=== PATIENT | female | born 1935 | race Caucasian/White ===

== ENCOUNTER → 2017-05-06 | Outpatient (CLI) | payer OTHER | LOC: FIMAGING 14:01 | PROVIDERS: ATTEND Internal Medicine | DX: I67.2 Cerebral atherosclerosis (principal); S09.90XS Unspecified injury of head, sequela ==

== ENCOUNTER → 2017-06-05 | Outpatient (CLI) | payer OTHER ==
[~2017-06-05] MED LIST: IOPAMIDOL (ISOVUE-300) 100 ML BTL ONE
== END ==
LOC: FIMAGING 13:48
PROVIDERS: ATTEND Family Medicine
DX: K57.32 Diverticulitis of large intestine without perforation or abscess without bleeding (principal); D25.9 Leiomyoma of uterus, unspecified; K76.89 Other specified diseases of liver; K44.9 Diaphragmatic hernia without obstruction or gangrene
CPT/HCPCS: 74177; Q9967

== ENCOUNTER → 2017-06-09 | Outpatient (CLI) | payer OTHER | LOC: FIMAGING 15:47 | PROVIDERS: ATTEND Internal Medicine | DX: Z12.31 Encounter for screening mammogram for malignant neoplasm of breast (principal); Z85.3 Personal history of malignant neoplasm of breast | CPT/HCPCS: G0202 ==

== ENCOUNTER 2017-12-05 18:23 | Inpatient (IN) | payer OTHER ==
--- NOTE | 2017-12-05 18:41 | CPEKG ---
Heart Rate: 75 RR Interval: 800 P-R Interval: 144 QRSD Interval: 88 QT Interval: 400 QTC Interval: 447 P [place]: 30 QRS [place]: -22 T Wave [place]: 48 EKG Severity - OTHERWISE NORMAL ECG - EKG Impression: SINUS RHYTHM EKG Impression: BORDERLINE LEFT AXIS DEVIATION Electronically Signed By: Gio Shafer 05-Dec-2017 18:54:07
[2017-12-05] MEDS ORDERED: ASPIRIN 81 MG CHEWABLE TAB PO ONE (18:46)
[2017-12-05] MEDS ORDERED: NITROGLYCERIN 0.4 MG BTL SL PRN ×2 (18:46→22:49)
--- NOTE | 2017-12-05 18:49 | EDPHY ---
H & P Time Seen by Provider: 12/05/17 18:25 HPI/ROS: CHIEF COMPLAINT: Chest discomfort HISTORY OF PRESENT ILLNESS: Patient is a family history of coronary disease has been feeling more weak over the last month. Her daughter went to walk with her yesterday and she had stopped rest on flat ground which is unusual for her. She has a history of always being a hiker and having climbed multiple 14 14[place] in her life. Patient today went to her primary care doctor's office at 5:00 p.m. And then around quarter to 6 or 6:00 p.m. started having left-sided chest tightness or pressure which does not radiate, not associated with coughing or shortness of breath or nausea or diaphoresis. Still present very mild. Not associated with leg swelling or leg pain. REVIEW OF SYSTEMS: Eye: no change in vision ENT: no sore throat Cardiac: HPI no palpitations Pulmonary: HPI no cough or fever Abdomen: no vomiting, diarrhea, abdominal pain Musculoskeletal: no back pain or leg swelling Skin: no rash Neuro: no headache. She does describe feeling mentally a little bit off ever since she had antibiotics for diverticulitis last July. Constitutional: no fever : no urinary symptoms A comprehensive 10 point review of systems is otherwise negative aside from elements mentioned in the history of present illness. PAST MEDICAL HISTORY: Includes remote history of breast cancer, rotator cuff surgery, right shoulder replacement Family history: Father had myocardial infarction in his 50s, twin brother had bypass surgery 3 years ago Social history: Nonsmoker, here with her daughter. General Appearance: Alert and conversant, cooperative. Eyes: No scleral icterus. ENT, Mouth: Normal mucous membranes. Respiratory: Normal respiratory effort, breath sounds equal, lungs are clear to auscultation. Cardiovascular: Regular rate and rhythm. Gastrointestinal: Abdomen is soft and non tender. Neurological: Alert, face symmetric, normal motor and sensory in extremities. Skin: Warm and dry, no rashes. Musculoskeletal: No peripheral edema. No calf tenderness. Psychiatric: Not agitated. Emergency Department course/MDM: At least moderate suspicion for acute coronary syndrome given decreased exercise tolerance and family history. EKG does not show ST elevation. Oral aspirin, labs to include D-dimer because of history of breast cancer, troponin, chest x-ray. 2011: Asymptomatic after 1 nitroglycerin, labs and plan for admission for risk stratification discussed with patient and her children. Smoking Status: Never smoked Constitutional: Initial Vital Signs Temperature (C) 36.6 C 12/05/17 18:24 Heart Rate 88 12/05/17 18:24 Respiratory Rate 17 12/05/17 18:24 Blood Pressure 156/90 H 12/05/17 18:24 O2 Sat (%) 98 12/05/17 18:24 O2 Delivery Mode Nasal Cannula Allergies/Adverse Reactions: acetaminophen Allergy (Verified 12/31/14 12:43) leg cramps Sulfa (Sulfonamide Antibiotics) [Sulfa(Sulfonamide Antibiotics)] Allergy ( Verified 12/31/14 12:43) ibuprofen [From Advil] Adverse Reaction (Verified 12/31/14 12:43) Home Medications: Medication Instructions Recorded Estradiol/Norethindrone Acet 1 each PO DAILY 11/24/14 [Activella 0.5-0.1 mg Tablet] Levothyroxine [Synthroid] 88 mcg PO SUMOWEFR@11/24/14 Aspirin [Aspirin 81mg (OTC)] 81 mg PO DAILY 12/26/14 Levothyroxine [Synthroid] 75 mcg PO TUTHSA@12/26/14 oxyCODONE IR [Oxycodone Ir (*)] 5 - 15 mg PO Q3 PRN #0 tab 12/28/14 oxyCODONE IR [Oxycodone Ir (*)] 5 - 10 mg PO Q6 PRN #29 tab 12/31/14 Medical Decision Making - Diagnostics EKG Interpretation: 12-lead EKG interpreted by me; official reading is in trace master. My interpretation is sinus rhythm rate 75 with borderline left axis. Imaging Results: Imaging Impressions Chest X-Ray 12/05/17 18:47 Impression: No definite pneumonia. Imaging: I viewed and interpreted images myself Differential Diagnosis: Differential diagnosis considered for chest pain including but not limited to myocardial ischemia, aortic dissection, pericarditis, pulmonary embolus, chest wall pain, pleural inflammation and pulmonary infectious causes. Consult[facility] [facility] Laboratory Results: Laboratory Results 12/05/17 18:52 12/05/17 18:52 12/05/17 12/05/17 12/05/17 18:52 18:52 18:52 WBC 8.84 10^3/uL 10^3/uL (3.80-9.50) RBC 4.63 10^6/uL 10^6/uL (4.18-5.33) Hgb 15.0 g/dL g/dL (12.6-16.3) Hct 41.8 % % (38.0-47.0) MCV 90.3 fL fL (81.5-99.8) MCH 32.4 pg pg (27.9-34.1) MCHC 35.9 g/dL g/dL (32.4-36.7) RDW 13.7 % % (11.5-15.2) Plt Count 206 10^3/uL 10^3/uL (150-400) MPV 9.5 fL fL (8.7-11.7) Neut % (Auto) 48.9 % % (39.3-74.2) Lymph % (Auto) 38.1 % % (15.0-45.0) [place] % (Auto) 9.2 % % (4.5-13.0) Eos % (Auto) 2.3 % % (0.6-7.6) Baso % (Auto) 1.2 % % (0.3-1.7) Nucleat RBC Rel Count 0.0 % % (0.0-0.2) Absolute Neuts (auto) 4.32 10^3/uL 10^3/uL (1.70-6.50) Absolute Lymphs (auto) 3.37 10^3/uL H 10^3/uL (1.00-3.00) Absolute Monos (auto) 0.81 10^3/uL H 10^3/uL (0.30-0.80) Absolute Eos (auto) 0.20 10^3/uL 10^3/uL (0.03-0.40) Absolute Basos (auto) 0.11 10^3/uL H 10^3/uL (0.02-0.10) Absolute Nucleated RBC 0.00 10^3/uL 10^3/uL (0-0.01) Immature Gran % 0.3 % % (0.0-1.1) Immature Gran # 0.03 10^3/uL 10^3/uL (0.00-0.10) D-Dimer 0.37 ug/mLFEU ug/mLFEU (0.00-0.50) Sodium 139 mEq/L mEq/L (135-145) Potassium 4.2 mEq/L mEq/L (3.5-5.2) Chloride 104 mEq/L mEq/L (97-110) Carbon Dioxide 24 mEq/l mEq/l (22-31) Anion Gap 11 mEq/L mEq/L (8-16) BUN 18 mg/dL mg/dL (7-23) Creatinine 0.8 mg/dL mg/dL (0.6-1.0) Estimated GFR > 60 Glucose 77 mg/dL mg/dL (70-100) Calcium 8.7 mg/dL mg/dL (8.5-10.4) Troponin I < 0.012 ng/mL ng/mL (0.000-0.034) Medications Given: Nitroglycerin (Nitrostat) 0.4 mg SL Q5M PRN PRN Reason: Chest Pain Last Admin: 12/05/17 19:35 Dose: 0.4 mg Discontinued Medications Aspirin (Aspirin) 324 mg PO EDNOW ONE Stop: 12/05/17 18:47 Last Admin: 12/05/17 19:27 Dose: 324 mg Departure - Departure Disposition: [facility] Inpatient Acute Clinical Impression: Chest pain Condition: Good Referrals: Sri Carroll MD [Primary Care Provider] - As per Instructions
[2017-12-05 19:02] LABS: PLATELET COUNT 206 10^3/uL (150-400)
[2017-12-05] MEDS ORDERED: HYDROCODONE/APAP 5/325 TAB PO PRN (22:43)
[2017-12-05] MEDS ORDERED: ACETAMINOPHEN 325 MG TAB PO PRN (22:43)
[2017-12-05] MEDS ORDERED: ONDANSETRON 4 MG/2 ML VIAL IVP PRN (22:43)
--- NOTE | 2017-12-06 01:02 | PDGENHP ---
History and Physical - Chief Complaint chest pain - History of Present Illness Source-patient provides history appears reliable. EMR reviewed and case discussed with ED provider HPI - espinoza 82-year-old female with past medical history significant for CAD , remote breast cancer, hypothyroidism who presents emergency department today with complaints of new onset left-sided chest heaviness. At approximately 5-6 p.m. Patient was leaving her PCPs office when she developed the left-sided chest pressure. She had her daughter drive her to the emergency department by the time she arrived her chest pain had resolved. She denies any associated shortness of breath, no diaphoresis. Patient without any previous history of angina. She has had a remote stress test that was reported to be negative but this has been several years ago. Patient has strong family history for coronary artery disease including father and brother. Patient is a fairly active person. She has reports having climbed all 14 nurse and continues to hike locally. More recently patient reports that over the last several months she has been having increasing fatigue with exertion. She denies any associated shortness of breath or chest pain. She has not had any syncope or presyncopal episodes. Patient states that she had follow up with her PCP recently for her fatigue and laboratory studies were completed. Review of EMR shows that patient did have a TSH in October that was within normal limits as well as CBC and BMP. Patient denies any significant lower extremity edema. She has no orthopnea. Denies PND. History Information - Allergies/Home Medication List Allergies/Adverse Reactions: acetaminophen Allergy (Verified 12/31/14 12:43) leg cramps ibuprofen [From Advil] Allergy (Verified 12/05/17 22:56) Sulfa (Sulfonamide Antibiotics) [Sulfa(Sulfonamide Antibiotics)] Allergy ( Verified 12/31/14 12:43) Home Medications: Estradiol/Norethindrone Acet [Activella 0.5-0.1 mg Tablet] 1 each PO DAILY 11/24 [Last Taken 12/05/17] Levothyroxine [Synthroid] 88 mcg PO SUMOWEFR@11/24/14 [Last Taken 12/05/17] Aspirin [Aspirin 81mg (OTC)] 81 mg PO HS 12/26/14 [Last Taken 12/05/17] Levothyroxine [Synthroid] 75 mcg PO TUTHSA@12/26/14 [Last Taken 12/04/17] Ascorbic Acid [Vitamin C] 1,000 mg PO HS 12/05/17 [Last Taken 12/04/17] I have personally reviewed and updated: family history, medical history, social history, surgical history - Past Medical History Additional medical history: History concussion 2017, CAD, diverticulitis, breast cancer, hypothyroidism - Surgical History Additional surgical history: Right lumpectomy, rotator cuff repair, right total shoulder arthroplasty - Family History Additional family history: Father-CAD/NE in his 50s. Brother twin-CABG in his 70s - Social History Smoking Status: Never smoked Alcohol Use: None Drug Use: None Additional social history: Good support from daughter who lives in town. Core- full Review of Systems Review of Systems: ROS: 10pt was reviewed & negative except for what was stated in HPI & below Constitutional: Reports: malaise. Denies: chills, fever, weakness EENMT: Reports: no symptoms Cardiac: Reports: chest pain. Denies: edema, lightheadedness, palpitations Respiratory: Denies: cough, shortness of breath, wheezing Gastrointestinal: Denies: vomitting, nausea Genitourinary: Denies: dysuria, hematuria Muscolosketal: Denies: joint swelling, muscle stiffness Skin: Reports: no symptoms Neurological: Reports: no symptoms. Denies: headache, numbness, tingling, weakness Hematologic/Lymphatic: Reports: no symptoms Physical Exam Physical Exam: Temp Pulse Resp BP Pulse Ox 36.6 C 68 18 141/70 H 95 12/05/17 23:39 12/05/17 23:39 12/05/17 23:39 12/05/17 23:39 12/05/17 23:39 Constitutional: no apparent distress, No uncomfortable Eyes: PERRL, anicteric sclera, EOMI Ears, Nose, Mouth, Throat: moist mucous membranes, other (No nasal discharge), No poor dentition Cardiovascular: regular rate and rhythym, no murmur, rub, or gallop, No systolic murmur, No edema Peripheral Pulses: 2+: dorsalis-pedis (R), dorsalis-pedis (L) Respiratory: no respiratory distress, clear to auscultation, No expiratory wheeze Gastrointestinal: normoactive bowel sounds, no palpable masses, No distension Genitourinary: no bladder tenderness, No lamb in urethra Skin: warm, normal color, no rashes or abrasions, No mottled Musculoskeletal: full muscle strength (Patient able to sit up independently), other, No joint tenderness, No generalized weakness Neurologic: AAOx3, sensation intact bilaterally, CN II-XII Intact, No facial droop Psychiatric: interacting appropriately, not anxious, not encephalopathic, thought process linear Lab Data & Imaging Review 12/05/17 18:52 12/06/17 03:25 WBC 8.84 10^3/uL (3.80-9.50) 12/05/17 18:52 RBC 4.63 10^6/uL (4.18-5.33) 12/05/17 18:52 Hgb 15.0 g/dL (12.6-16.3) 12/05/17 18:52 Hct 41.8 % (38.0-47.0) 12/05/17 18:52 MCV 90.3 fL (81.5-99.8) 12/05/17 18:52 MCH 32.4 pg (27.9-34.1) 12/05/17 18:52 MCHC 35.9 g/dL (32.4-36.7) 12/05/17 18:52 RDW 13.7 % (11.5-15.2) 12/05/17 18:52 Plt Count 206 10^3/uL (150-400) 12/05/17 18:52 MPV 9.5 fL (8.7-11.7) 12/05/17 18:52 Neut % (Auto) 48.9 % (39.3-74.2) 12/05/17 18:52 Lymph % (Auto) 38.1 % (15.0-45.0) 12/05/17 18:52 [place] % (Auto) 9.2 % (4.5-13.0) 12/05/17 18:52 Eos % (Auto) 2.3 % (0.6-7.6) 12/05/17 18:52 Baso % (Auto) 1.2 % (0.3-1.7) 12/05/17 18:52 Nucleat RBC Rel Count 0.0 % (0.0-0.2) 12/05/17 18:52 Absolute Neuts (auto) 4.32 10^3/uL (1.70-6.50) 12/05/17 18:52 Absolute Lymphs (auto) 3.37 10^3/uL (1.00-3.00) H 12/05/17 18:52 Absolute Monos (auto) 0.81 10^3/uL (0.30-0.80) H 12/05/17 18:52 Absolute Eos (auto) 0.20 10^3/uL (0.03-0.40) 12/05/17 18:52 Absolute Basos (auto) 0.11 10^3/uL (0.02-0.10) H 12/05/17 18:52 Absolute Nucleated RBC 0.00 10^3/uL (0-0.01) 12/05/17 18:52 Immature Gran % 0.3 % (0.0-1.1) 12/05/17 18:52 Immature Gran # 0.03 10^3/uL (0.00-0.10) 12/05/17 18:52 D-Dimer 0.37 ug/mLFEU (0.00-0.50) 12/05/17 18:52 Sodium 139 mEq/L (135-145) 12/05/17 18:52 Potassium 4.2 mEq/L (3.5-5.2) 12/05/17 18:52 Chloride 104 mEq/L (97-110) 12/05/17 18:52 Carbon Dioxide 24 mEq/l (22-31) 12/05/17 18:52 Anion Gap 11 mEq/L (8-16) 12/05/17 18:52 BUN 18 mg/dL (7-23) 12/05/17 18:52 Creatinine 0.8 mg/dL (0.6-1.0) 12/05/17 18:52 Estimated GFR > 60 12/05/17 18:52 Glucose 77 mg/dL (70-100) 12/05/17 18:52 Calcium 8.7 mg/dL (8.5-10.4) 12/05/17 18:52 Troponin I < 0.012 ng/mL (0.000-0.034) 12/05/17 18:52 Imaging Review: Chest, Two Views at 1834 hours, December 05, 2017 History: Chest pain, previous right breast cancer. Comparison: April 2012. Findings: Cardiac silhouette is within normal range. No definite pulmonary nodules. Surgical clips in the right breast. 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 No definite pneumonia. No congestive heart failure, pleural effusion, or pneumothorax. Right shoulder arthroplasty. Moderate osteoarthritis of left glenohumeral joint. Impression: No definite pneumonia. Dictated By: Ariel Guthrie * Visualized and Interpreted EKG results: Yes EKG additional interpertation: NSR 7 knees. LAD. QTC 447. No acute ST changes Assessment & Plan Assessment: Chest pain (Acute) - patient's HEART score is 4 with family history age hand moderate suspicion. Patient's chest pain is resolved shortly after onset. Initial EKG and troponin are nondiagnostic. We will plan to trend cardiac enzymes and consider stress in the a.m.. Patient has been reporting increasing fatigue with exertion but no dyspnea or anginal type symptoms. Fatigue - echocardiogram ordered for a.m.. Reviewed outpatient labs from PCP showing normal TSH and laboratory studies. Chronic medical issues hypothyroidism - continue l-thyroxine replacement. FEN - NPO after midnight. electrolyte replacement prn. SLIV. PPX - SCDs. lovenox if normal stress and patient requires additional hospital stay. COR - FULL. Dispo - admit to observation at this time pending further cardiac evaluation.
[2017-12-06] MEDS ORDERED: diphenhydrAMINE 25 MG CAP PO PRN (02:22)
--- NOTE | 2017-12-06 10:43 | ECHO ---
[email or web address] [address] Main: [phone] Fax: Transthoracic Echocardiogram Name: EDU MCKNIGHT MR#: [id number] Study Date: 12/06/2017 Study Time: 09:37 AM Date of : 1935 Age: 82 year(s) Height: 152.4 cm (60 in.) Weight: 60.78 kg (134 lb.) BSA: 1.57 m2 Gender: Female Examination: Echo Indication: Fatigue Image Quality: Contrast: Requested by: Claudia Payne BP: 166 mmHg/78 mmHg Heart Rate: Rhythm: Normal sinus rhythm Indication: Fatigue Procedure Staff Heating Repair Technician: Darryl Maya RDCS Reading Physician: Michael Marshall MD Requesting Provider: Conclusions: Normal global systolic LV function. EF is 65 %. Mild mitral valve leaflet calcification is present. Measurements: Chambers Valvular Assessment AV/MV Valvular Assessment TV/PV Normal Normal Normal Name Value Range Name Value Range Name Value Range Ao Tiffany (MM): 2.2 cm (2.2 cm-3.7 AV Vmax: 1.25 m/s (1 m/s-1.7 PV Vmax: 1.15 m/s (0.6 m/s-0.9 cm) m/s) m/s) IVSd (2D): 0.9 cm (0.6 cm-1.1 AV maxP mmHg ( - ) PV PGmax: 5 mmHg ( - ) cm) LVOT Vmax: 0.82 m/s (0.7 m/s-1.1 LVDd (2D): 3.7 cm (3.9 cm-5.3 m/s) cm) AR (PHT): 462 ms ( - ) LVDs (2D): 2.4 cm (2.1 cm-4 MV E Vmax: 0.67 m/s ( - ) cm) MV A Vmax: 1.16 m/s ( - ) LVPWd (2D): 0.9 cm ( - ) MV E/A: 0.58 ( - ) LVEF (2D): 65 (>=54 %) Continued Measurements: Chambers Valvular Assessment AV/MV Name Value Name Value LADs Lon.4 cm MV E/E' Septal: 11.00 LA Area: 11.2 cm2 MV E/E' Lateral: 10.20 LA Volume: 25 ml AR Vmax: 2.89 cm/s LA Volume Index: 15.9 ml/m2 Patient: EDU MCKNIGHT Study Date: 12/06/2017 Page 1 of 2 09:37 AM Findings: Left Ventricle: No LV hypertrophy. Normal global systolic LV function. EF is 65 %. No regional wall motion abnormality. Diastolic LV function normal for age. Right Ventricle: Normal size right ventricle. Normal RV function. Left Atrium: The left atrium is normal in size. Right Atrium: The right atrium is normal in size. Mitral Valve: Mild mitral valve leaflet calcification is present. Trivial mitral valve regurgitation. Aortic Valve: Mild aortic cusp calcification is noted. Trivial aortic valve regurgitation. No aortic valve stenosis is present. Tricuspid Valve: The tricuspid valve appears normal. Trivial tricuspid valve regurgitation. Pulmonic Valve: The pulmonic valve is normal in appearance and function. Aorta: The aorta is normal. Pericardium: No pericardial effusion. (No Signature Object) Patient: EDU MCKNIGHT Study Date: 12/06/2017 Page 2 of 2 09:37 AM [id number]
[2017-12-06] MEDS ORDERED: REGADENOSON 0.4 MG/5 ML SYR IVP ONE (11:11)
--- NOTE | 2017-12-06 12:16 | CPR ---
[f rep st] NONINVASIVE CARDIAC PROCEDURE REPORT DATE OF PROCEDURE: 12/06/2017 STUDY: Treadmill Nuclear Stress Test. REASON FOR TEST: 1. Chest heaviness. 2. Increased fatigue. 3. Twin brother with history of coronary artery disease and SD causing . RESTING EKG: Shows a sinus rhythm with septal Q-waves. She is asymptomatic at time of test. Restin g blood pressure 148/70, resting heart rate 75, oxygen saturation 94% on room air. EXERCISE PORTION: According to the Angelo protocol, she was exercised for a total of 3 minutes, reach ing maximal heart rate of 126. MET level 4.6. Max some heart rate 126. Maximal blood pressure 176/ 80. There were no EKG changes. She had no chest pain or complaints of shortness of breath with test ing. There were occasional PVCs noted with exercise. RECOVERY: She did spontaneously recover. There was no increase in arrhythmias. Final EKG showed no PVCs. EKG otherwise remain stable. Recovery blood pressure 150/80. Recovery heart rate 79. At this time, she currently is stable for nuclear imaging. /[id number]/MODL
--- NOTE | 2017-12-06 13:29 | ASMTCMCOM ---
CM Note CM Note Notes: Chart reviewed. Patient is active 82 yeear old admiited as OBS via ED for c/o chest heavyness. R/O ACS. Refused PT as she is up independent. Likey home independent no needs identified at this time. CM available should needs arise. Date Signed: 12/06/2017 01:28 PM Electronically Signed By:Rosanna Gallardo RN
--- NOTE | 2017-12-06 16:04 | HOSPPROG ---
Hospitalist Progress Note Assessment/Plan: * chest pain/ progressive dyspnea with exertion * stress images slightly abnormal * will need rest images * hypothyroidism Subjective: no further cp Objective: Vital Signs Temp Pulse Resp BP Pulse Ox 36.9 C 80 12 146/84 H 95 12/06/17 11:42 12/06/17 11:42 12/06/17 11:42 12/06/17 11:42 12/06/17 11:42 Laboratory Results 12/06/17 03:25 12/05/17 12/06/17 12/07/17 05:59 05:59 06:59 Intake Total 100 Balance 100 - Physical Exam Constitutional: no apparent distress, appears nourished, not in pain Eyes: anicteric sclera, EOMI Ears, Nose, Mouth, Throat: moist mucous membranes Cardiovascular: regular rate and rhythym, no murmur, rub, or gallop Respiratory: no respiratory distress, no rales or rhonchi Gastrointestinal: normoactive bowel sounds Skin: warm Neurologic: AAOx3 Psychiatric: interacting appropriately, not anxious, not encephalopathic, thought process linear ICD10 Worksheet Patient Problems: Problems Problem Status Onset Chest pain Acute 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
--- NOTE | 2017-12-06 16:40 | PDMN ---
Medical Necessity Medical necessity: C/M review: est. > 2 MN LOS for eval and TX of acute chest pain, progressive dysopnea with exertion, 12/06/2017 myocardial perfusion scan - stress images slightly abnormal requiring planned 12/07/2017 myocardial perfusion scan rest images, ongoing cardiac monitoring,. comorbid hypothyroidism per 12/06/2017 Hospitalist progress note.
[2017-12-06] MEDS: ASPIRIN 81 MG CHEWABLE TAB PO SCH (20:46)
[2017-12-07] MEDS: LEVOTHYROXINE 88 MCG TAB PO SCH (05:54)
[2017-12-07] MEDS: NORETHINDRONE PO SCH (08:20)
[2017-12-07] MEDS: ESTRADIOL PO SCH (08:20)
--- NOTE | 2017-12-07 14:39 | HOSPPROG ---
Hospitalist Progress Note Assessment/Plan: * chest pain/ progressive dyspnea with exertion * stress test with reversible inf-lat wall ischemia * short run of NSVT * cards consulted - probable cath tomorrow * NSVT/couple runs of SVT or afib * will defer to cards * hypothyroidism Subjective: no pain Objective: Vital Signs Temp Pulse Resp BP Pulse Ox 36.8 C 71 16 138/64 H 94 12/07/17 14:01 12/07/17 14:01 12/07/17 14:01 12/07/17 14:01 12/07/17 14:01 12/06/17 12/07/17 12/08/17 04:59 05:59 05:59 Intake Total Output Total Balance tele reviewed - short run of svt vs afib and short run of NSVT discussed with cards - Physical Exam Constitutional: no apparent distress, appears nourished, not in pain Eyes: anicteric sclera, EOMI Ears, Nose, Mouth, Throat: moist mucous membranes, hearing normal Cardiovascular: regular rate and rhythym Respiratory: no respiratory distress Skin: warm Neurologic: AAOx3 Psychiatric: interacting appropriately, not anxious, not encephalopathic, thought process linear ICD10 Worksheet Patient Problems: Problems Problem Status Onset Chest pain Acute 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
--- NOTE | 2017-12-07 17:50 | PDCARCONS ---
Cardiology Consult Reason for Consult: Chest pressure with abnormal MPI Chief Complaint: Chest pressure Requesting Physician: Hospitalist team History of Present Illness: Patient is an 82 y/o female with history of hypothyroidism and breast cancer, who presented to [facility] after appreciating chest pressure. No colleen "pains" have been noted, but the patient has a keen awareness of both chest pressure as well as acute functional decline. She has long standing history of being very active (she has climbed all the [employer] of [place]). Discomfort to left chest is a new symptom for the patient. Family history (father) with CAD. Twin brother with similar presentation - no chest pains, but rather fatigue (a symptom that she has noted as well). His fatigue led to stress testing, then angiogram, and five vessel CABG about 3-5 years ago. At present, the patient is resting comfortably. No active cardiovascular complaints of chest pains or pressure. No PND or orthopnea. Functional decline has been noted over just the past few months (<3). Twelve point review of systems is otherwise unremarkable History Information - Allergies/Home Medication List Allergies/Adverse Reactions: acetaminophen Allergy (Verified 12/31/14 12:43) leg cramps ibuprofen [From Advil] Allergy (Verified 12/05/17 22:56) Sulfa (Sulfonamide Antibiotics) [Sulfa(Sulfonamide Antibiotics)] Allergy ( Verified 12/31/14 12:43) Home Medications: Estradiol/Norethindrone Acet [Activella 0.5-0.1 mg Tablet] 1 each PO DAILY 11/24 [Last Taken 12/05/17] Levothyroxine [Synthroid] 88 mcg PO SUMOWEFR@11/24/14 [Last Taken 12/05/17] Aspirin [Aspirin 81mg (OTC)] 81 mg PO HS 12/26/14 [Last Taken 12/05/17] Levothyroxine [Synthroid] 75 mcg PO TUTHSA@12/26/14 [Last Taken 12/04/17] Ascorbic Acid [Vitamin C] 1,000 mg PO HS 12/05/17 [Last Taken 12/04/17] I have personally reviewed and updated: family history, medical history, social history, surgical history Past Medical History: - Past Medical History Additional medical history: breast cancer - Surgical History Reports: no pertinent surgical hx - Family History Positive for: CAD, male first degree with history of premature CAD - Social History Smoking Status: Never smoked Alcohol Use: None Drug Use: None Cardiac History - Cardiac History Cardiac Risk Factors: family history of premature CAD, age > 65 Timing/Duration: Weeks Severity: moderate Severity Scale: 6 Location: substernal, central Activities at Onset: activity Modifying Factors: improves with: rest Associated Symptoms: chest pain, weakness BRIE Risk Evaluation age greater or equal to 65: yes greater or equal to 3 CAD risk factors: no known CAD(stenosis greater or eqaul to 50%): no ASA use in past 7 days: yes severe angina(greater or equal to 2 episodes in 24hrs): no EKG ST changes greater or equal to 0.5mm: no positive cardiac marker: no Total Score: 2 BRIE Score: 8.3% risk Physical Exam Physical Exam: Temp Pulse Resp BP Pulse Ox 36.8 C 71 16 138/64 H 94 12/07/17 14:01 12/07/17 14:01 12/07/17 14:01 12/07/17 14:01 12/07/17 14:01 Constitutional: no apparent distress, appears nourished, not in pain Eyes: PERRL Ears, Nose, Mouth, Throat: moist mucous membranes, hearing normal, ears appear normal Cardiovascular: regular rate and rhythym, no murmur, rub, or gallop, pulses symmetric bilaterally, No JVD Peripheral Pulses: 2+: dorsalis-pedis (R), dorsalis-pedis (L) Respiratory: no respiratory distress, no rales or rhonchi, clear to auscultation Gastrointestinal: normoactive bowel sounds, soft, non-tender abdomen Skin: warm, normal color Musculoskeletal: full muscle strength, no muscle tenderness, normal joint ROM Neurologic: AAOx3, sensation intact bilaterally, CN II-XII Intact Psychiatric: interacting appropriately, not anxious, not encephalopathic Lab and Imaging 12/05/17 18:52 12/06/17 03:25 WBC 8.84 10^3/uL (3.80-9.50) 12/05/17 18:52 RBC 4.63 10^6/uL (4.18-5.33) 12/05/17 18:52 Hgb 15.0 g/dL (12.6-16.3) 12/05/17 18:52 Hct 41.8 % (38.0-47.0) 12/05/17 18:52 MCV 90.3 fL (81.5-99.8) 12/05/17 18:52 MCH 32.4 pg (27.9-34.1) 12/05/17 18:52 MCHC 35.9 g/dL (32.4-36.7) 12/05/17 18:52 RDW 13.7 % (11.5-15.2) 12/05/17 18:52 Plt Count 206 10^3/uL (150-400) 12/05/17 18:52 MPV 9.5 fL (8.7-11.7) 12/05/17 18:52 Neut % (Auto) 48.9 % (39.3-74.2) 12/05/17 18:52 Lymph % (Auto) 38.1 % (15.0-45.0) 12/05/17 18:52 [place] % (Auto) 9.2 % (4.5-13.0) 12/05/17 18:52 Eos % (Auto) 2.3 % (0.6-7.6) 12/05/17 18:52 Baso % (Auto) 1.2 % (0.3-1.7) 12/05/17 18:52 Nucleat RBC Rel Count 0.0 % (0.0-0.2) 12/05/17 18:52 Absolute Neuts (auto) 4.32 10^3/uL (1.70-6.50) 12/05/17 18:52 Absolute Lymphs (auto) 3.37 10^3/uL (1.00-3.00) H 12/05/17 18:52 Absolute Monos (auto) 0.81 10^3/uL (0.30-0.80) H 12/05/17 18:52 Absolute Eos (auto) 0.20 10^3/uL (0.03-0.40) 12/05/17 18:52 Absolute Basos (auto) 0.11 10^3/uL (0.02-0.10) H 12/05/17 18:52 Absolute Nucleated RBC 0.00 10^3/uL (0-0.01) 12/05/17 18:52 Immature Gran % 0.3 % (0.0-1.1) 12/05/17 18:52 Immature Gran # 0.03 10^3/uL (0.00-0.10) 12/05/17 18:52 D-Dimer 0.37 ug/mLFEU (0.00-0.50) 12/05/17 18:52 Sodium 140 mEq/L (135-145) 12/06/17 03:25 Potassium 4.3 mEq/L (3.5-5.2) 12/06/17 03:25 Chloride 105 mEq/L (97-110) 12/06/17 03:25 Carbon Dioxide 25 mEq/l (22-31) 12/06/17 03:25 Anion Gap 10 mEq/L (8-16) 12/06/17 03:25 BUN 17 mg/dL (7-23) 12/06/17 03:25 Creatinine 0.8 mg/dL (0.6-1.0) 12/06/17 03:25 Estimated GFR > 60 12/06/17 03:25 Glucose 92 mg/dL (70-100) 12/06/17 03:25 Calcium 8.7 mg/dL (8.5-10.4) 12/06/17 03:25 Total Bilirubin 0.6 mg/dL (0.1-1.4) 12/06/17 03:25 AST 26 IU/L (14-46) 12/06/17 03:25 ALT 33 IU/L (9-52) 12/06/17 03:25 Alkaline Phosphatase 55 IU/L (38-126) 12/06/17 03:25 Troponin I < 0.012 ng/mL (0.000-0.034) 12/06/17 03:25 Total Protein 6.3 g/dL (6.3-8.2) 12/06/17 03:25 Albumin 3.8 g/dL (3.5-5.0) 12/06/17 03:25 Visualized and Interpreted Chest x-ray results: Yes Chest X-ray Interpretation: no infiltrate Visualized and Interpreted EKG results: Yes EKG Interpretation: Positive for: normal sinsus rhythm Telemetry: normal sinus rhythm Echocardiogram: normal LVEF A/P Assessment: Patient is an 82 y/o female with history of hypothyroidism and breast cancer who presented to [facility] ER with complaints of chest pressure as well as rather acute, functional decline in exercise tolerance. No elevation in cardiac biomarkers has been noted. ECG without dynamic ST/T wave changes noted. Stress testing today with inferior ischaemic pattern noted. Echocardiogram with normal left ventricular systolic ejection fraction. Plan: Recommendations for patient to have angiography tomorrow. Risks and benefits of the procedure were discussed with the patient tonight. Further recommendations to follow after this invasive, diagnostic procedure are completed.
[2017-12-07] MEDS ORDERED: TEMAZEPAM 15 MG CAP PO PRN (18:11)
[2017-12-07] MEDS: ASPIRIN 81 MG CHEWABLE TAB PO SCH (20:53)
[2017-12-08 04:34] LABS: PLATELET COUNT 213 10^3/uL (150-400)
[2017-12-08 04:41] LABS: INR 1.01 (0.83-1.16); PROTIME(PATIENT) 13.5 SEC (12.0-15.0)
[2017-12-08] MEDS ORDERED: DIAZEPAM 5 MG TAB PO ONE ×2 (06:00→12:17)
[2017-12-08] MEDS ORDERED: FAMOTIDINE 20 MG TAB PO ONE ×2 (06:00→12:10)
[2017-12-08] MEDS ORDERED: NS 1,000 ML IV ONE ×2 (06:00→12:10)
[2017-12-08] MEDS: LEVOTHYROXINE 88 MCG TAB PO SCH (06:23)
--- NOTE | 2017-12-08 08:20 | CPEKG ---
Heart Rate: 72 RR Interval: 833 P-R Interval: 160 QRSD Interval: 78 QT Interval: 428 QTC Interval: 469 P [place]: 70 QRS [place]: -22 T Wave [place]: 43 EKG Severity - OTHERWISE NORMAL ECG - EKG Impression: SINUS RHYTHM EKG Impression: BORDERLINE LEFT AXIS DEVIATION Electronically Signed By: Jona Baxter 08-Dec-2017 17:23:45
[2017-12-08] MEDS: ESTRADIOL PO SCH (08:33)
[2017-12-08] MEDS: NORETHINDRONE PO SCH (08:33)
--- NOTE | 2017-12-08 10:40 | ASMTCMCOM ---
CM Note CM Note Notes: Chart reviewed for discharge planning purposes. Patient normally lived Independent with her here for chest pain to have angiogram today. Needs to be determined. CM to follow. Date Signed: 12/08/2017 10:39 AM Electronically Signed By:Rosanna Gallardo RN
[2017-12-08] MEDS ORDERED: diphenhydrAMINE 25 MG CAP PO ONE (12:10)
[2017-12-08] MEDS ORDERED: ASPIRIN EC 325 MG TAB PO ONE (12:10)
[2017-12-08] MEDS ORDERED: MIDAZOLAM 2 MG/2 ML VIAL ONE (13:10)
[2017-12-08] MEDS ORDERED: fentaNYL 100 MCG/2 ML INJ ONE (13:10)
[2017-12-08] MEDS ORDERED: IOPAMIDOL (ISOVUE-370) 150 ML BTL IV ONE (13:10)
[2017-12-08] MEDS ORDERED: LIDOCAINE 1% 300 MG/30 ML SDV ONE (13:10)
--- NOTE | 2017-12-08 13:23 | PDPROPOC ---
Sedation Plan of Care Sedation Plan of Care: vital signs stable, mental status noted, patient educated of risks, benefits, alternatives, patient can tolerate sedation ASA Classification: ASA 2 Planned drugs: fentanyl, midazolam Mallampati Score: Class 2 Mallampati Reference Image: Patient passed 3-3-2 rule?: Yes
--- NOTE | 2017-12-08 13:24 | PDHPUP ---
History & Physical Update H&P update statement: This history and physical update is based on an assessment of the patient which was completed after admission or registration (within 24 hours), but prior to the surgery/procedure. H&P update: H&P reviewed & patient examined, no change in patient's condition since H&P completed
--- NOTE | 2017-12-08 16:56 | CPIP ---
[f rep st] INVASIVE CARDIAC PROCEDURE DATE OF PROCEDURE: 12/08/2017 PROCEDURES PERFORMED: 1. Coronary angiography. 2. Left ventriculography. INDICATION: 1. Dyspnea on exertion concerning for class 2-3 angina. 2. Abnormal nuclear stress test with inferolateral ischemia that is intermediate risk. ACCESS: Patient was prepped and draped in sterile fashion. 1% lidocaine was used to anesthetize the right inguinal region. A 6-Setswana introducer sheath was placed selectively into the right common fe moral artery via modified Seldinger technique. CORONARY ANGIOGRAPHY: A 6-Setswana JL4 was advanced to the left main coronary artery and images obtain ed. The left main coronary artery bifurcated into an LAD and circumflex coronary arteries. The left main coronary artery appeared normal. The left anterior descending coronary artery gave rise to 1 s mall diagonal branch, as well as 1 prominent diagonal artery. The left anterior descending coronary artery is diffusely diseased. In the proximal segment, there was a segmental 10% to 20% stenosis pre sent. The second diagonal artery was the larger of the 2 diagonal branches. The second diagonal art jesse had a proximal 20% stenosis present. The circumflex coronary artery was nondominant. Circumflex coronary artery appeared normal. A 6-Setswana JR4 was advanced to the right coronary artery and image s obtained. The right coronary artery is dominant. The right coronary artery had mild luminal irreg ularities throughout. There was no stenosis greater than 10%. LEFT VENTRICULOGRAPHY: A 6-Setswana pigtail catheter was advanced in the left ventricle and images obt ained. Left ventricle was normal size and normal systolic function. Estimated ejection fraction was 65%. COMPLICATIONS: None. CONCLUSIONS: 1. Mild coronary artery disease without flow limitation. 2. Normal left ventricular size and systolic function. 3. Normal left ventricular end-diastolic pressure of 15 mmHg. 4. Plan is for medical management. /[id number]/MODL
[2017-12-08] MEDS ORDERED: ACETAMINOPHEN 500 MG TAB PO PRN (17:57)
[2017-12-08] MEDS ORDERED: MAG HYDROX/AL HYDROX/SIMETH 30 ML UDCUP PO ONE (18:00)
[2017-12-08] MEDS ORDERED: HYOSCYAMINE SULFATE 0.125 MG TAB PO ONE (18:00)
[2017-12-08] MEDS ORDERED: LIDOCAINE 2% VISCOUS 15 ML UDCUP PO ONE (18:00)
[2017-12-08] MEDS: ASPIRIN 81 MG CHEWABLE TAB PO SCH (20:09)
--- NOTE | 2017-12-08 22:45 | HOSPPROG ---
Hospitalist Progress Note Assessment/Plan: 82 yo healthy woman with a history of hypothyroidism is admitted with chest pain and several weeks of fatigue. Evaluation includes a negative ddimer and an abnormal nuclear stress test. She underwent angiogram today which revealed non obstructive CAD with normal EF. # Chest pain, unknown etiology. Not cardiac and no evidence of PE on Ddimer. * Poss GI vs MS * DC after recover from cath. Still quite sedated evening post cath * Will need ongoing evaluation as outpatient. # Fatigue. SP outpatient eval. continue follow up, no obvious cause noted in hospital. Subjective: Pt new to me and chart reviewed. Ongoing mild chest discomfort, a 0.5/10 with negative work up. Objective: Vital Signs Temp Pulse Resp BP Pulse Ox 36.7 C 74 18 165/85 H 95 12/08/17 19:51 12/08/17 19:51 12/08/17 19:51 12/08/17 19:51 12/08/17 19:51 Laboratory Results 12/08/17 03:18 12/08/17 03:18 12/07/17 12/08/17 12/09/17 05:59 05:59 05:59 Intake Total 400 600 Output Total 1000 Balance -600 600 PT 13.5 SEC (12.0-15.0) 12/08/17 03:18 INR 1.01 (0.83-1.16) 12/08/17 03:18 - Physical Exam Constitutional: no apparent distress, appears nourished, not in pain Eyes: PERRL, anicteric sclera, EOMI Ears, Nose, Mouth, Throat: moist mucous membranes Cardiovascular: regular rate and rhythym, no murmur, rub, or gallop Respiratory: no respiratory distress, no rales or rhonchi Gastrointestinal: normoactive bowel sounds, soft, non-tender abdomen Genitourinary: no bladder fullness Skin: warm Neurologic: AAOx3 Psychiatric: interacting appropriately, not anxious ICD10 Worksheet Patient Problems: Problems Problem Status Onset 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
[2017-12-09 06:00] VITALS: PULSE 73; TEMP 98.6
[2017-12-09] MEDS ORDERED: LEVOTHYROXINE 75 MCG TAB PO SCH (06:00)
[2017-12-09 08:04] VITALS: BP 130/84; RESP 18; O2SAT 94
--- NOTE | 2017-12-09 10:14 | GDS ---
[f rep st] DISCHARGE SUMMARY DIAGNOSES: 1. Chest pain, noncardiac. 2. Fatigue. 3. Short-term memory loss. 4. Hypothyroidism. CONSULTATIONS: Dr. Johnnie Bahena, cardiology. PROCEDURES DONE: 1. Echocardiogram showing normal ejection fraction, no wall motion abnormalities. 2. Myocardial perfusion scan, suspect mild reversible ischemia involving the inferior lateral wall. 3. Interventional cardiac procedure with left heart catheterization. Mild coronary artery disease w ithout flow limitation. Normal left ventricular size and systolic function. Normal left ventricular end-diastolic pressure. HOSPITAL COURSE: The patient is an 82-year-old woman with a history significant for hypothyroidism w ho comes in with some generalized fatigue and chest pain. Apparently, she had been working with her primary care provider on the fatigue and exertional fatigue. She developed chest pain and was admitt ed to the hospital for further evaluation and she had the above procedures. There is no obvious caus e for her chest pain noted. She had a negative D-dimer, negative cardiac evaluation and normal echoc ardiogram. She was reassured that this pain did not likely represent cardiopulmonary disease and rec ommended follow up with her primary care provider. It is unclear as to the cause of her ongoing exer tional fatigue. However, that has been worked up as an outpatient and she will follow up with Dr. Santillan for ongoing workup. She can also schedule an appointment with pulmonology for possible evaluatio n there. It was noted in the hospital that she did have some short-term memory deficits. We had to explain the results and testing several times to her. Certainly, this could be exacerbated by the an esthesia as well as the anxiety of being in the hospital but it is something that can be followed up as an outpatient. CONDITION ON DISCHARGE: Good. Vitals signs are stable. She is pain free. DISCHARGE MEDICATIONS: Please see discharge medication form. She will resume her home medications a nd aspirin was added to her regimen. FOLLOWUP INSTRUCTIONS: She should follow up with Dr. Carroll in a week or 2. She should follow up tee Mcgrath in 2 weeks and consider followup with pulmonology should she consider continued to have exertional symptoms of fatigue. It is unclear if this is truly shortness of breath. Total time spent with patient on day of discharge and coordination of care was 35 minutes. /[id number]/MODL
--- NOTE | 2017-12-09 12:41 | ASDISCHSUM ---
Discharge Information Plan Status:Home with No Needs Medically Cleared to Leave:12/09/2017 Discharge Date:12/09/2017 11:40 AM CM D/C Disposition:Home, Routine, Self-Care ADT D/C Disposition:Home, Routine, Self-Care Projected Discharge Date:12/09/2017 11:40 AM Transportation at D/C: Discharge Delay Reason: Follow-Up Date:12/09/2017 11:40 AM Discharge Slot: Final Diagnosis: Placement Information Patient Contact Information Contact Name:JACQUIE Relationship:Daughter Address:[address] City:[place] Alternate Phone: State/Zip Code:[place] [address] Email: Financial Information Financial Class:Medicare Primary Plan Desc:MEDICARE INPATIENT Primary Plan Number:[id number] Secondary Plan Desc:[facility] Secondary Plan Number:[id number] Assessment Information [facility] CM Progress Note CM Note CM Note Notes: Chart reviewed. Patient is active 82 yeear old admiited as OBS via ED for c/o chest heavyness. R/O ACS. Refused PT as she is up independent. Likey home independent no needs identified at this time. CM available should needs arise. Date Signed: 12/06/2017 01:28 PM Electronically Signed By:Rosanna Gallardo RN [facility] CM Progress Note CM Note CM Note Notes: Chart reviewed for discharge planning purposes. Patient normally lived Independent with her here for chest pain to have angiogram today. Needs to be determined. CM to follow. Date Signed: 12/08/2017 10:39 AM Electronically Signed By:Rosanna Gallardo RN Case Management Discharge Plan Note Case Management Discharge Discharge Order Complete? Answers: Yes Patient to Obtain Answers: Independently Medications Transportation Arranged Answers: Family/Friends Discharge Comments Notes: 12/09/2017 Case Management Note There are no case management d/c needs identified. There were no PT or OT evals ordered during hospital stay. Pt lives with and was independent prior to admission. Pt to follow up with medical providers as directed. Date Signed: 12/09/2017 10:22 AM Electronically Signed By:Charlene Wilson RN Intervention Information Intervention Type:*IM-Signed Date of Service:12/09/2017 09:53 AM Patient Type:Inpatient Staff Member:Reyna Angulo Hours: Discipline: Severity: Comment:
--- NOTE | 2017-12-09 13:49 | SOAPPROG ---
[facility] Progress Note Assessment/Plan: Chest pain - Pt presented with chest pain. She ruled out for myocardial infarction. Stress testing was notable for an inferolateral perfusion defect suggestive of ischemia. Angiography demonstrated no significant obstructive disease. Consider pulmonary or GI evaluation for non-cardiac chest pain. CAD - Pt had mild non-obstructive CAD by cardiac catheterization. Will start asa for secondary prevention. Manage other risk factors as outlined below. Hyperlipidemia - LDL = 87 with diet and exercise. Pt would like to work on diet and exercise prior to considering statin therapy. HTN - BP is borderline during hospitalization. Pt will follow as an out patient. Consider lisinopril. Subjective: Pt has multiple questions regarding cardiac testing and management. Objective: Vital Signs Temp Pulse Resp BP Pulse Ox 37.0 C 73 18 130/84 H 94 12/09/17 08:02 12/09/17 08:02 12/09/17 08:02 12/09/17 08:02 12/09/17 08:02 Laboratory Results 12/08/17 03:18 12/08/17 03:18 12/08/17 12/09/17 12/10/17 05:59 05:59 05:59 Intake Total 400 800 Output Total 1000 200 Balance -600 600 PT 13.5 SEC (12.0-15.0) 12/08/17 03:18 INR 1.01 (0.83-1.16) 12/08/17 03:18 Physical Exam - Physical Exam General Appearance: alert, no apparent distress Respiratory: lungs clear Cardiac/Chest: regular rate, rhythm Extremities: other (No hematoma or echymosis.) ICD10 Worksheet Patient Problems: Problems Problem Status Onset 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
== END 2017-12-09 11:40 | disposition home or self-care (01) | DRG 287 ==
LOC: F2W 21:21 → OBSVTOIN 12-06 16:32
PROVIDERS: ADMIT Family Medicine; ATTEND Internal Medicine
PROC: 4A023N7 Measurement of Cardiac Sampling and Pressure, Left Heart, Percutaneous Approach (ICD-10-PCS; principal; 2017-12-08)
PROC: B2111ZZ Fluoroscopy of Multiple Coronary Arteries using Low Osmolar Contrast (ICD-10-PCS; principal; 2017-12-08)
PROC: B2151ZZ Fluoroscopy of Left Heart using Low Osmolar Contrast (ICD-10-PCS; principal; 2017-12-08)
DX: R07.89 Other chest pain (principal); R53.83 Other fatigue; I25.10 Atherosclerotic heart disease of native coronary artery without angina pectoris; E03.9 Hypothyroidism, unspecified; Z85.3 Personal history of malignant neoplasm of breast; R41.3 Other amnesia
CPT/HCPCS: A9500; G0378; J1644; J2250; J2785; J3010; Q9967

== ENCOUNTER → 2018-01-08 | Outpatient (CLI) | payer OTHER ==
[~2018-01-08] MED LIST changes: +GADOBUTROL 10 ML VIAL IVP ONE; -IOPAMIDOL (ISOVUE-300) 100 ML BTL ONE
== END ==
LOC: FIMAGING 09:49
PROVIDERS: ATTEND Psychiatry & Neurology Neurology
DX: R93.0 Abnormal findings on diagnostic imaging of skull and head, not elsewhere classified (principal); G31.9 Degenerative disease of nervous system, unspecified; Z85.3 Personal history of malignant neoplasm of breast
CPT/HCPCS: 70553; A9585

== ENCOUNTER → 2018-01-13 | Outpatient (CLI) | payer OTHER | LOC: FIMAGING 07:00 | PROVIDERS: ATTEND Psychiatry & Neurology Neurology | DX: R41.3 Other amnesia (principal); R20.2 Paresthesia of skin; Z85.3 Personal history of malignant neoplasm of breast; M54.2 Cervicalgia ==

== ENCOUNTER → 2018-05-18 | Outpatient (CLI) | payer OTHER | LOC: BMCIMAGING 09:04 | PROVIDERS: ATTEND Orthopaedic Surgery | DX: M16.11 Unilateral primary osteoarthritis, right hip (principal) ==

== ENCOUNTER 2018-06-12 05:56 | Inpatient (IN) | payer OTHER ==
[2018-06-03 10:47] LABS: PLATELET COUNT 269 10^3/uL (150-400)
[2018-06-12] MEDS ORDERED: TRANEXAMIC ACID 1,000 MG in NS 100 ML IV ONE (06:00)
[2018-06-12] MEDS ORDERED: ROPIVACAINE 0.2% 80 MG, EPINEPHrine 0.2 MG, KETOROLAC TROMETHAMINE 30 MG, morphINE 10 M... IU ONE (06:00)
[2018-06-12] MEDS ORDERED: ceFAZolin 2 GM/DEXTROSE 100 ML IV ONE (06:08)
[2018-06-12] MEDS ORDERED: ACETAMINOPHEN 325 MG TAB PO ONE (06:08)
[2018-06-12] MEDS ORDERED: FAMOTIDINE 20 MG TAB PO ONE (06:08)
[2018-06-12] MEDS ORDERED: LR 1,000 ML IV ONE (06:09)
--- NOTE | 2018-06-12 06:34 | PDHPUP ---
History & Physical Update H&P update statement: This history and physical update is based on an assessment of the patient which was completed after admission or registration (within 24 hours), but prior to the surgery/procedure. H&P update: no change in patient's condition since H&P completed
--- NOTE | 2018-06-12 06:34 | PDIAF ---
- Diagnosis Diagnosis: right hip djd Code Status: Full Code - Medication Management Discharge Medications: Medications to Continue on Transfer Estradiol/Norethindrone Acet [Activella 0.5-0.1 mg Tablet] 1 each PO DAILY 11/24 [Last Taken 12/05/17] Levothyroxine [Synthroid 88 mcg (*)] 88 mcg PO Q2D@11/24/14 [Last Taken 12/05] Levothyroxine [Synthroid 75 mcg (*)] 75 mcg PO Q2D@12/26/14 [Last Taken 12/04] Acetaminophen [Tylenol ES 500 mg (*)] 500 mg PO DAILY 05/26/18 [Last Taken Unknown] Herbals/Supplements -Info Only 1 ea PO DAILY 05/26/18 [Last Taken Unknown] traMADol [Ultram 50 mg (*)] 50 mg PO HS 05/26/18 [Last Taken Unknown] Discharge Medications: Refer to the Discharge Home Medication list for PRN reason. - Orders Services needed: Physical Therapy Isolation Type: None Diet Recommendation: no restrictions on diet Diet Texture: Regular Texture Diet Additional Instructions: TOTAL JOINT ARTHROPLASTY DISCHARGE INSTRUCTIONS 1. Your surgeon follows the [facility] protocol for reducing your risk of DVT (blood clots) following surgery. Medication will be ordered to prevent blood clots. A sudden increase in calf pain and/or swelling could indicate a blood clot in your leg. If this occurs, please call your surgeon or his/her graduate research assistant. An ultrasound of the leg may be necessary to diagnose a blood clot. If you have conditions that make you a higher risk for blood clots, your surgeon may use more aggressive ways to prevent them. Notify your surgeon if you think you are a high risk for blood clots. 2. Wear your white surgical stockings (SOCORRO hose) for 2 weeks. This decreases your swelling and may help prevent blood clots. It is ok to remove SOCORRO hose at night time to give your legs a break. 3. Swelling and bruising in the surgical leg is common. If you feel that it is excessive, please notify your surgeon. 4. Elevate your surgical leg with the ankle above the hip several times every day. Please keep the leg straight when you elevate by putting pillows under your foot. Do not put pillows under your knee. This will make being able to fully straighten more difficult. This is uncomfortable, but try to do it as much as possible. 5. For total knee replacements use compressive wrap on your knee for 3-5 days after surgery, then you can discontinue it. 6. Use a walker or crutches for 1-2 weeks. Progress your weight-bearing as tolerated. You may start to use a cane when you feel stable and safe. 7. You will receive physical therapy instructions in the hospital. Continue those exercises at home. There are additional exercises in the total joint booklet you were given before surgery. Outpatient physical therapy will begin 7- 10 days after surgery. Please schedule this in advance. 8. Use ice on your knee at least 3-5 times every day for 30 minutes. This helps reduce pain and swelling. Also use it at night before falling asleep. 9. Leave your surgical dressing in place for 2 weeks. Your dressing is water resistant, but not waterproof. Cover it with Saran Wrap or [id number] before showering. You may shower as soon as you feel safe entering a shower. If you notice bleeding from your incision 2 or 3 days after surgery, please notify your surgeon. 10. Due to narcotics, decreased activity and altered diet, most patients experience constipation after surgery. Use [id number] stool softeners while you are on narcotics. 11. You may drive a car when you are comfortable bearing weight, have good muscular control of your leg and are off narcotics. This usually occurs 2-4 weeks after surgery, depending on which leg was operated on. 12. If there are questions not addressed here, please refer the [facility] book given for more information. If you still have questions, please contact your surgeon s office. 13. If you have a life-threatening emergency, please call 911 and go to the emergency room immediately. For non-life threatening emergencies, please call your physicians office for advice before going to the emergency room. - Follow Up Care Current Providers and Referrals: Sri Carroll MD [Primary Care Provider] - Michael Varela MD [Medical Doctor] -
[2018-06-12] MEDS ORDERED: ceFAZolin 1 GM/5 ML SYR ONE (07:02)
[2018-06-12] MEDS ORDERED: PROPOFOL/EMULSION 500 MG/50 ML BOTTLE IV ONE (07:46)
[2018-06-12] MEDS ORDERED: BUPIVACAINE/DEXTROSE 7.5MG/ML 2 ML SPINAL AMP SP ONE (07:47)
[2018-06-12] MEDS ORDERED: ALBUMIN 5% 250 ML BOTTLE IV ONE (07:49)
--- NOTE | 2018-06-12 07:56 | PDANEPAE ---
ANE Past Medical History - Cardiovascular History Hx Hypertension: No Hx Arrhythmias: No Hx Chest Pain: Yes Hx Coronary Artery / Peripheral Vascular Disease: No Hx CHF / Valvular Disease: No Hx Palpitations: No Cardiovascular History Comment: Has had inpt dx of chest pain in 11/2017 but nothing cardiac was found per pt. - Pulmonary History Hx COPD: No Hx Asthma/Reactive Airway Disease: No Hx Recent Upper Respiratory Infection: No Hx Oxygen in Use at Home: No Hx Sleep Apnea: No Sleep Apnea Screening Result - Last Documented: Negative Pulmonary History Comment: Yearly sinus inf.-last 09/10. - Neurologic History Hx Cerebrovascular Accident: No Hx Seizures: No Hx Dementia: No - Endocrine History Hx Diabetes: No Endocrine History Comment: Hypothyroid-med - Renal History Hx Renal Disorders: Yes Renal History Comment: Increased urination - Liver History Hx Hepatic Disorders: No - Neurological & Psychiatric Hx Hx Neurological and Psychiatric Disorders: No - Cancer History Hx Cancer: Yes Cancer History Comment: R breast-surg,radiation. - Congenital Disorder History Hx Congenital Disorders: No Congenital History Comment: Abd bulge causing bladder pressure. - GI History Hx Gastrointestinal Disorders: No - Other Health History Other Health History: Wears glasses. Bilateral cataracts-removed 2008. R foot bunion. Cap upper front tooth - nothing else removable - Chronic Pain History Chronic Pain: Yes (Right Hip) - Surgical History Prior Surgeries: Right total shoulder, 12/26/14. 2012-R breast lumpectomy. bunionectomy 2007. 2002-R rotator cuff. 1998-L acilles. Tonsils as child ANE Review of Systems Review of Systems: - Exercise capacity METS (RN): 4 METS ANE Patient History - Allergies Allergies/Adverse Reactions: Sulfa (Sulfonamide Antibiotics) [Sulfa(Sulfonamide Antibiotics)] Allergy ( Verified 06/12/18 06:10) Unknown - Home Medications Home Medications: Estradiol/Norethindrone Acet [Activella 0.5-0.1 mg Tablet] 1 each PO DAILY 11/24 [Last Taken 06/11/18] Levothyroxine [Synthroid 88 mcg (*)] 88 mcg PO Q2D@11/24/14 [Last Taken 06/10] Levothyroxine [Synthroid 75 mcg (*)] 75 mcg PO Q2D@12/26/14 [Last Taken 06/11] Acetaminophen [Tylenol ES 500 mg (*)] 500 mg PO DAILY 05/26/18 [Last Taken 06/12] Herbals/Supplements -Info Only 1 ea PO DAILY 05/26/18 [Last Taken 06/11/18] traMADol [Ultram 50 mg (*)] 50 mg PO HS 05/26/18 [Last Taken 06/10/18] - NPO status NPO Since - Liquids (Date): 06/12/18 NPO Since - Liquids (Time): 20:00 NPO Since - Solids (Date): 06/11/18 NPO Since - Solids (Time): 20:00 - Smoking Hx Smoking Status: Never smoked - Family Anes Hx Family Hx Anesthesia Complications: Brother-post surg confusion&memory issuesx4 days. ANE Labs/Vital Signs - Labs Result Diagrams: 06/03/18 10:18 - Vital Signs Blood Pressure: 163/93 Heart Rate: 82 Respiratory Rate: 16 O2 Sat (%): 94 Height: 152.4 cm Weight: 59.421 kg ANE Physical Exam - Airway Neck exam: FROM, decreased ROM, short neck Mallampati Score: Class 3 Mouth exam: normal dental/mouth exam - Pulmonary Pulmonary: no respiratory distress, no rales or rhonchi, reduced air movement - Cardiovascular Cardiovascular: regular rate and rhythym, no murmur, rub, or gallop - ASA Status ASA Status: III ANE Anesthesia Plan Anesthesia Plan: spinal
[2018-06-12] MEDS ORDERED: LIDOCAINE 2% 2 ML INJ ONE (07:59)
[2018-06-12] MEDS ORDERED: LR 500 ML IV PRN (08:35)
[2018-06-12] MEDS ORDERED: ALBUTEROL 3 ML DEYVIAL IH PRN (08:35)
[2018-06-12] MEDS ORDERED: NALOXONE HCL 0.4 MG/ML INJ IVP PRN (08:35)
[2018-06-12] MEDS ORDERED: DEXAMETHASONE 4 MG/ML VIAL IVP PRN (08:35)
[2018-06-12] MEDS ORDERED: ONDANSETRON 4 MG/2 ML VIAL IVP PRN ×2 (08:35→09:52)
[2018-06-12] MEDS ORDERED: oxyCODONE IR 5 MG TAB PO PRN (09:52)
[2018-06-12] MEDS ORDERED: PROMETHAZINE HCL 25 MG SUPPR PR PRN (09:52)
[2018-06-12] MEDS ORDERED: METOCLOPRAMIDE 10 MG/2 ML VIAL IVP PRN (09:52)
[2018-06-12] MEDS ORDERED: LACTULOSE 20 GM/30 ML UDCUP PO PRN (09:52)
[2018-06-12] MEDS ORDERED: POLYETHYLENE GLYCOL 3350 17 GM PKT PO PRN (09:52)
[2018-06-12] MEDS ORDERED: CYCLOBENZAPRINE 10 MG TAB PO PRN (09:52)
[2018-06-12] MEDS ORDERED: diphenhydrAMINE 25 MG CAP PO PRN (09:52)
[2018-06-12] MEDS ORDERED: TEMAZEPAM 15 MG CAP PO PRN (09:52)
[2018-06-12] MEDS ORDERED: PROMETHAZINE HCL 25 MG/ML INJ IVP PRN (09:52)
[2018-06-12] MEDS ORDERED: DIPHENOXYLATE/ATROPINE LOMOTIL 1 TAB PO PRN (09:52)
[2018-06-12] MEDS ORDERED: BISACODYL 10 MG SUPP PR PRN (09:52)
[2018-06-12] MEDS ORDERED: MAGNESIUM HYDROXIDE 30 ML UDCUP PO PRN (09:52)
[2018-06-12] MEDS ORDERED: ONDANSETRON DISINTEGRATING 4 MG TAB PO PRN (09:52)
--- NOTE | 2018-06-12 09:52 | POSTOPPROG ---
Post Op Note Date of Operation: 06/12/18 Surgeon: Michael Varela Brine Tank Operator: linus Anesthesiologist: tim Anesthesia: Spinal Pre-op Diagnosis: right hip djd Post-op Diagnosis: same Indication: same Procedure: right chad Inf/Abcess present in the surg proc area at time of surgery?: No Depth: Deep Incisional (Fascial) EBL: 100-500 Drains: Hemovac
[2018-06-12] MEDS ORDERED: LR 1,000 ML IV SCH (10:00)
--- NOTE | 2018-06-12 10:08 | PDMN ---
Medical Necessity Medical necessity: [facility] [place]thro[place]: 82 y/o s/p CPT 37343, R HUMBERTO, MC IP only
[2018-06-12] MEDS ORDERED: fentaNYL 100 MCG/2 ML INJ ONE (10:33)
[2018-06-12] MEDS: fentaNYL 100 MCG/2 ML INJ IVP PRN ×2 (10:36→11:58)
--- NOTE | 2018-06-12 10:37 | POSTANESTH ---
Post Anesthetic Evaluation Cardiovascular Status: Normal, Stable, Similar to Pre-Op Cond, Tx Over/Under Hydration Respiratory Status: Normal, Stable Level of Consciousness/Mental Status: Mildly Sleepy, Arousable Pain Control: Adequate, Prn Tx Ordered Nausea/Vomiting Control: Adequate, Prn Tx Ordered Complications Possibly Related to Anesthesia: None Noted
[2018-06-12] MEDS: ACETAMINOPHEN 325 MG TAB PO SCH ×2 (12:41→18:22)
[2018-06-12] MEDS: TRANEXAMIC ACID 650 MG TAB PO SCH ×2 (14:40→22:49)
[2018-06-12] MEDS: ceFAZolin 2 GM/DEXTROSE 100 ML IV SCH ×2 (14:41→22:49)
[2018-06-12] MEDS: traMADol 50 MG TAB PO PRN (15:14)
--- NOTE | 2018-06-12 15:59 | ASMTCMCOM ---
CM Note CM Note Notes: CM received email from Isabel with [facility]; pt called [facility] and [facility] received pre-operative referral for pt who has been open with [facility] in the past. PT rec [facility]/outpatient. Date Signed: 06/12/2018 03:54 PM Electronically Signed By:CAROLIN Parker
--- NOTE | 2018-06-12 16:11 | SOAPPROG ---
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
[2018-06-12] MEDS: HYDROCODONE/APAP 5/325 TAB PO PRN ×2 (17:17→22:53)
[2018-06-12] MEDS: SENNOSIDES/DOCUSATE SODIUM TAB PO SCH (19:44)
[2018-06-12] MEDS: FAMOTIDINE 20 MG TAB PO SCH (19:46)
[2018-06-12] MEDS: ASPIRIN 325 MG TAB PO SCH (19:47)
[2018-06-12] MEDS ORDERED: traMADol 50 MG TAB PO SCH (21:00)
[2018-06-13] MEDS: ACETAMINOPHEN 325 MG TAB PO SCH ×3 (00:25→12:22)
[2018-06-13] MEDS: TRANEXAMIC ACID 650 MG TAB PO SCH (04:52)
[2018-06-13] MEDS ORDERED: LEVOTHYROXINE 75 MCG TAB PO SCH (06:00)
[2018-06-13] MEDS: HYDROCODONE/APAP 5/325 TAB PO PRN (06:27)
--- NOTE | 2018-06-13 07:39 | PDIAF ---
- Diagnosis Diagnosis: right hip djd Code Status: Full Code - Medication Management Discharge Medications: Medications to Continue on Transfer Estradiol/Norethindrone Acet [Activella 0.5-0.1 mg Tablet] 1 each PO DAILY 11/24 [Last Taken 06/11/18] Levothyroxine [Synthroid 88 mcg (*)] 88 mcg PO Q2D@11/24/14 [Last Taken 06/10] Levothyroxine [Synthroid 75 mcg (*)] 75 mcg PO Q2D@12/26/14 [Last Taken 06/11] Acetaminophen [Tylenol ES 500 mg (*)] 500 mg PO DAILY 05/26/18 [Last Taken 06/12] Herbals/Supplements -Info Only 1 ea PO DAILY 05/26/18 [Last Taken 06/11/18] traMADol [Ultram 50 mg (*)] 50 mg PO HS 05/26/18 [Last Taken 06/10/18] Aspirin [Aspirin 325 mg (*)] 325 mg PO DAILY tab 06/13/18 [Last Taken Unknown] Hydrocodone/APAP 5/325 [[place] 5/325 (*)] 1 tab PO Q4HRS PRN #40 tab 06/13/18 [ Last Taken Unknown] traMADol [Ultram 50 mg (*)] 50 - 100 mg PO Q6H PRN #50 tab 06/13/18 [Last Taken Unknown] Discharge Medications: Refer to the Discharge Home Medication list for PRN reason. - Orders Services needed: Physical Therapy Isolation Type: None Diet Recommendation: no restrictions on diet Diet Texture: Regular Texture Diet Additional Instructions: TOTAL JOINT ARTHROPLASTY DISCHARGE INSTRUCTIONS 1. Your surgeon follows the [facility] protocol for reducing your risk of DVT (blood clots) following surgery. Medication will be ordered to prevent blood clots. A sudden increase in calf pain and/or swelling could indicate a blood clot in your leg. If this occurs, please call your surgeon or his/her medical assistant prn. An ultrasound of the leg may be necessary to diagnose a blood clot. If you have conditions that make you a higher risk for blood clots, your surgeon may use more aggressive ways to prevent them. Notify your surgeon if you think you are a high risk for blood clots. 2. Wear your white surgical stockings (SOCORRO hose) for 2 weeks. This decreases your swelling and may help prevent blood clots. It is ok to remove SOCORRO hose at night time to give your legs a break. 3. Swelling and bruising in the surgical leg is common. If you feel that it is excessive, please notify your surgeon. 4. Elevate your surgical leg with the ankle above the hip several times every day. Please keep the leg straight when you elevate by putting pillows under your foot. Do not put pillows under your knee. This will make being able to fully straighten more difficult. This is uncomfortable, but try to do it as much as possible. 5. For total knee replacements use compressive wrap on your knee for 3-5 days after surgery, then you can discontinue it. 6. Use a walker or crutches for 1-2 weeks. Progress your weight-bearing as tolerated. You may start to use a cane when you feel stable and safe. 7. You will receive physical therapy instructions in the hospital. Continue those exercises at home. There are additional exercises in the total joint booklet you were given before surgery. Outpatient physical therapy will begin 7- 10 days after surgery. Please schedule this in advance. 8. Use ice on your knee at least 3-5 times every day for 30 minutes. This helps reduce pain and swelling. Also use it at night before falling asleep. 9. Leave your surgical dressing in place for 2 weeks. Your dressing is water resistant, but not waterproof. Cover it with Saran Wrap or Dmomc-r-Mvkb before showering. You may shower as soon as you feel safe entering a shower. If you notice bleeding from your incision 2 or 3 days after surgery, please notify your surgeon. 10. Due to narcotics, decreased activity and altered diet, most patients experience constipation after surgery. Use rceb-nor-egdawdv stool softeners while you are on narcotics. 11. You may drive a car when you are comfortable bearing weight, have good muscular control of your leg and are off narcotics. This usually occurs 2-4 weeks after surgery, depending on which leg was operated on. 12. If there are questions not addressed here, please refer the [facility] book given for more information. If you still have questions, please contact your surgeon s office. 13. If you have a life-threatening emergency, please call 911 and go to the emergency room immediately. For non-life threatening emergencies, please call your physicians office for advice before going to the emergency room. - Follow Up Care Current Providers and Referrals: Sri Carroll MD [Primary Care Provider] - Michael Varela MD [Medical Doctor] -
--- NOTE | 2018-06-13 07:40 | SOAPPROG ---
SOAP Progress Note Assessment/Plan: Assessment: s/p chad Plan:dvt precautions pain control d/c if cleared by pt and mentally ready to go home may need snf 06/12/18 16:10 06/13/18 07:39 Subjective: mild pain no cp or sob Objective: Vital Signs Temp Pulse Resp BP Pulse Ox 36.5 C 83 16 158/87 H 91 L 06/13/18 04:00 06/13/18 04:00 06/13/18 04:00 06/13/18 04:00 06/13/18 04:00 Laboratory Results 06/13/18 04:15 06/12/18 06/13/18 06/14/18 05:59 05:59 05:59 Intake Total 475 Output Total 1655 30 Balance -1180 -30 dressing intact intact pf,df,ehl toes warm and pink neg homans paz xrays stable anatomic alignemnt no fx or lucency ICD10 Worksheet Patient Problems: Problems Problem Status Onset Chest pain Acute 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
[2018-06-13 08:24] VITALS: BP 153/66
[2018-06-13] MEDS ORDERED: NORETHINDRONE ACET PO SCH (09:00)
[2018-06-13] MEDS ORDERED: ESTRADIOL PO SCH (09:00)
[2018-06-13] MEDS: ASPIRIN 325 MG TAB PO SCH (10:00)
[2018-06-13] MEDS: SENNOSIDES/DOCUSATE SODIUM TAB PO SCH (10:00)
[2018-06-13] MEDS: FAMOTIDINE 20 MG TAB PO SCH (10:00)
[2018-06-13] MEDS: traMADol 50 MG TAB PO PRN (10:03)
--- NOTE | 2018-06-13 13:01 | PDIAF ---
- Diagnosis Diagnosis: right hip djd Code Status: Full Code - Medication Management Discharge Medications: Medications to Continue on Transfer Estradiol/Norethindrone Acet [Activella 0.5-0.1 mg Tablet] 1 each PO DAILY 11/24 [Last Taken 06/11/18] Levothyroxine [Synthroid 88 mcg (*)] 88 mcg PO Q2D@11/24/14 [Last Taken 06/10] Levothyroxine [Synthroid 75 mcg (*)] 75 mcg PO Q2D@12/26/14 [Last Taken 06/11] Acetaminophen [Tylenol ES 500 mg (*)] 500 mg PO DAILY 05/26/18 [Last Taken 06/12] Herbals/Supplements -Info Only 1 ea PO DAILY 05/26/18 [Last Taken 06/11/18] traMADol [Ultram 50 mg (*)] 50 mg PO HS 05/26/18 [Last Taken 06/10/18] Aspirin [Aspirin 325 mg (*)] 325 mg PO DAILY tab 06/13/18 [Last Taken Unknown] Hydrocodone/APAP 5/325 [[place] 5/325 (*)] 1 tab PO Q4HRS PRN #40 tab 06/13/18 [ Last Taken Unknown] traMADol [Ultram 50 mg (*)] 50 - 100 mg PO Q6H PRN #50 tab 06/13/18 [Last Taken Unknown] Discharge Medications: Refer to the Discharge Home Medication list for PRN reason. - Orders Services needed: Home Care, Physical Therapy Home Care Face to Face: I certify that this patient was under my care and that I had the required [id number]-[id number] encounter meeting the encounter requirements on the discharge day. My findings support the fact that the patient is homebound as defined in Home Care Face to Face Continued: CMS Chapter 7 Medicare Benefits Manual 30.1.1 , The condition of the patient is such that there exists a normal inability to leave home and consequently, leaving home would require a considerable and taxing effort. Isolation Type: None Diet Recommendation: no restrictions on diet Diet Texture: Regular Texture Diet Additional Instructions: TOTAL JOINT ARTHROPLASTY DISCHARGE INSTRUCTIONS 1. Your surgeon follows the [facility] protocol for reducing your risk of DVT (blood clots) following surgery. Medication will be ordered to prevent blood clots. A sudden increase in calf pain and/or swelling could indicate a blood clot in your leg. If this occurs, please call your surgeon or his/her assistant refinery operator. An ultrasound of the leg may be necessary to diagnose a blood clot. If you have conditions that make you a higher risk for blood clots, your surgeon may use more aggressive ways to prevent them. Notify your surgeon if you think you are a high risk for blood clots. 2. Wear your white surgical stockings (SOCORRO hose) for 2 weeks. This decreases your swelling and may help prevent blood clots. It is ok to remove SOCORRO hose at night time to give your legs a break. 3. Swelling and bruising in the surgical leg is common. If you feel that it is excessive, please notify your surgeon. 4. Elevate your surgical leg with the ankle above the hip several times every day. Please keep the leg straight when you elevate by putting pillows under your foot. Do not put pillows under your knee. This will make being able to fully straighten more difficult. This is uncomfortable, but try to do it as much as possible. 5. For total knee replacements use compressive wrap on your knee for 3-5 days after surgery, then you can discontinue it. 6. Use a walker or crutches for 1-2 weeks. Progress your weight-bearing as tolerated. You may start to use a cane when you feel stable and safe. 7. You will receive physical therapy instructions in the hospital. Continue those exercises at home. There are additional exercises in the total joint booklet you were given before surgery. Outpatient physical therapy will begin 7- 10 days after surgery. Please schedule this in advance. 8. Use ice on your knee at least 3-5 times every day for 30 minutes. This helps reduce pain and swelling. Also use it at night before falling asleep. 9. Leave your surgical dressing in place for 2 weeks. Your dressing is water resistant, but not waterproof. Cover it with Saran Wrap or Ofgkq-y-Gexv before showering. You may shower as soon as you feel safe entering a shower. If you notice bleeding from your incision 2 or 3 days after surgery, please notify your surgeon. 10. Due to narcotics, decreased activity and altered diet, most patients experience constipation after surgery. Use ejsf-uzi-homdoxc stool softeners while you are on narcotics. 11. You may drive a car when you are comfortable bearing weight, have good muscular control of your leg and are off narcotics. This usually occurs 2-4 weeks after surgery, depending on which leg was operated on. 12. If there are questions not addressed here, please refer the [facility] book given for more information. If you still have questions, please contact your surgeon s office. 13. If you have a life-threatening emergency, please call 911 and go to the emergency room immediately. For non-life threatening emergencies, please call your physicians office for advice before going to the emergency room. - Follow Up Care Current Providers and Referrals: Sri Carroll MD [Primary Care Provider] - Michael Varela MD [Medical Doctor] -
--- NOTE | 2018-06-13 14:04 | ASMTLACE ---
PAOLOE Length of stay for Answers: 1 day current admission Acuity / Level of Answers: Yes Care: Did the patient have an inpatient admission? # of Emergency department Answers: 1-2 visits in the last 6 months Score: 5 Date Signed: 06/13/2018 02:03 PM Electronically Signed By:CAROLIN Gutierrez
--- NOTE | 2018-06-13 14:06 | ASMTDCNOTE ---
Case Management Discharge Discharge Order Complete? Answers: Yes Patient to Obtain Answers: via Family Medications Transportation Arranged Answers: Family/Friends Family Notified Answers: Yes Discharge Comments Notes: Pt is discharging home today with [facility] PT. Referral, D/C order and meds sent via [employer]. Date Signed: 06/13/2018 02:06 PM Electronically Signed By:CAROLIN Gutierrez
--- NOTE | 2018-06-13 14:07 | ASDISCHSUM ---
Discharge Information Plan Status:Home with Home Health Medically Cleared to Leave:06/13/2018 Discharge Date:06/13/2018 CM D/C Disposition:Home Health Service ADT D/C Disposition:Home Health Service Projected Discharge Date:06/13/2018 11:00 AM Transportation at D/C:Family Discharge Delay Reason: Follow-Up Date:06/13/2018 11:00 AM Discharge Slot: Final Diagnosis: Placement Information Referral Type:*Home Health Care Services Referral ID:[id number] Provider Name:[facility] ([facility]) Address 1:[address] [address] Address 2: City:[place] Selection Factors: State:[place] Patient Contact Information Contact Name:JACQUIE Relationship:Daughter Address:[address] City:[place] Alternate Phone: State/Zip Code:[place] [address] Email: Financial Information Financial Class:Medicare Primary Plan Desc:MEDICARE INPATIENT Primary Plan Number:[id number] Secondary Plan Desc:CS Secondary Plan Number:[id number] Assessment Information [facility] CM Progress Note CM Note CM Note Notes: CM received email from Isabel with [facility]; pt called [facility] and [facility] received pre-operative referral for pt who has been open with [facility] in the past. PT rec [facility]/outpatient. Date Signed: 06/12/2018 03:54 PM Electronically Signed By:CAROLIN Parker LACE LACE Length of stay for Answers: 1 day current admission Acuity / Level of Answers: Yes Care: Did the patient have an inpatient admission? # of Emergency department Answers: 1-2 visits in the last 6 months Score: 5 Date Signed: 06/13/2018 02:03 PM Electronically Signed By:CAROLIN Gutierrez Case Management Discharge Plan Note Case Management Discharge Discharge Order Complete? Answers: Yes Patient to Obtain Answers: via Family Medications Transportation Arranged Answers: Family/Friends Family Notified Answers: Yes Discharge Comments Notes: Pt is discharging home today with [facility]. Referral, D/C order and meds sent via [employer]. Date Signed: 06/13/2018 02:06 PM Electronically Signed By:CAROLIN Gutierrez Intervention Information
[2018-06-14] MEDS ORDERED: LEVOTHYROXINE 88 MCG TAB PO SCH (06:00)
--- NOTE | 2018-06-16 06:44 | GDS ---
ADMIT DIAGNOSIS: Right hip degenerative joint disease. DISCHARGE DIAGNOSIS: Right hip degenerative joint disease. PROCEDURE: Right total hip arthroplasty. OPERATIVE INDICATIONS: The patient is an 82-year-old woman with end-stage arthritis to her right hip . Clinical and radiographic features are consistent with this. She has failed all attempts at conse rvative management. I have therefore recommended total hip replacement. HOSPITAL COURSE: The patient was admitted to the hospital floor after uncomplicated total hip arthro plasty. She tolerated the procedure well. Postoperatively, she progressed rapidly with physical the rapy. At the time of discharge, she is tolerating an oral diet. Pain is well-controlled on oral med icine. She is voiding without difficulty. Dressing is clean, dry, and intact. Negative Homans bila terally. X-rays are stable with anatomic alignment, concentric reduction and no fracture. DISCHARGE ACTIVITY: She is weightbearing as tolerated. Anterior precautions. Keep the dressing louisa an, dry, and intact. DISCHARGE MEDICATIONS: Oxycodone 5 mg 1-2 every 6 hours p.r.n. pain, and aspirin 325 mg p.o. daily. FOLLOWUP: In 2 weeks. /[id number]/MODL
--- NOTE | 2018-06-16 06:44 | GOP ---
DATE OF OPERATION: 06/12/2018 SURGEON: Michael Varela MD CYBERATHLETE: Samuel Almaraz was the surgical garment inspector who was a medical necessity for the entirety of t he case. PREOPERATIVE DIAGNOSIS: Right hip degenerative joint disease. POSTOPERATIVE DIAGNOSIS: Right hip degenerative joint disease. PROCEDURE PERFORMED: Right total hip arthroplasty, MAKOplasty. FINDINGS: SPECIMENS: To Pathology, the femoral head. INDICATIONS: The patient is an 82-year-old woman with end-stage arthritis to her right hip. She has clinical and radiographic features consistent with this. She has failed all attempts at conservativ e management. I have recommended total hip replacement. DESCRIPTION OF PROCEDURE: The patient was identified in the preanesthesia area. The right hip clear ly demarcated as operative site with a double marker. She was given 2 g of Ancef intravenously en ro anyi to the operative suite. In the OR, spinal anesthetic was placed. She was positioned in the supi ne position. Attention was turned to the pelvis and both lower extremities which were sterilely prep ped and draped in the usual fashion. Appropriate time-out procedure was carried out. Attention firs t turned to the left hemipelvis. A 2 cm incision was made. Three pins were placed into the iliac cr est, and the pelvic reference array affixed. Attention was then turned to the right hip. An anterio r approach was made. Thick subcutaneous flaps were elevated. The tensor fascia debby opened in the o rigin of its fibers. The tensor retracted laterally. The underlying vascular structures identified, ligated, cauterized, and transected. The rectus was elevated off the anterior capsule. A T capsulo valente was made and Hohmann retractors were placed around the femoral neck within the capsule. An acet abular checkpoint was placed. A bony wedge was withdrawn from the femoral neck and the head was kimberley qamar. The remnants of the acetabular labrum were sharply excised. The bony landmarks were entered in to the computer in standard fashion. Using a 46 mm reamer and an opening angle of 40 degrees and 20 degrees of anteversion, the appropriate reaming was carried out. The acetabular shell was then press -fit into place and confirmed to be fully seated. A 32 mm inner diameter X3 liner was placed and con firmed to be fully seated. Attention was then turned to the femur. This was delivered through the u se of soft tissue retraction and extension of the table. The proximal canal was opened using a ronge ur. This was a very small proximal femoral canal and a flexible guidewire was placed. A flexible re amer was used to open the canal safely without perforation of the femoral cortex. Serial broaching w as carried out to a size two 127-degree neck angle hip stem, and trial reduction with a 32 mm -4 mm n ariel length head was then placed. Fluoroscopic evaluation confirmed appropriate leg length and positi on. The trial stem was withdrawn and 127-degree angle hip stem was impacted, confirmed to be fully s eated. A 32 mm -4 mm Biolox head was then placed across the trunnion. The hip was irrigated copious ly and reduced. Leg lengths were restored. Stability demonstrated no instability with external rota tion 90 degrees in full extension. The wound was copiously irrigated. The joint cocktail instilled across the skin and subcutaneous tissues. The tensor fascia debby closed using 0 Vicryl. A 10-Luxembourgish drain was placed and connected to bulb suction. Subcutaneous tissue closed using 2-0 Monocryl and a ZipLine skin closure placed, followed by sterile dressing. The patient was awakened, taken to the r ecovery room in good, stable condition. TOTAL TOURNIQUET TIME: None. COMPLICATIONS: None. IMPLANTS: Sagar titanium 2 acetabular shell, size 46 mm. Trident X3 0-degree polyethylene insert, 32 mm. Biologic ceramic head, 32 mm -4 mm neck length. Accolade II 127-degree neck angle hip stem size 2. DISPOSITION: To the recovery room, then the floor. /[id number]/MODL
== END 2018-06-13 15:06 | disposition home health service (06) | DRG 470 ==
LOC: F3N 05:56
PROVIDERS: ADMIT Orthopaedic Surgery; ATTEND Orthopaedic Surgery
PROC: 0SR904Z Replacement of Right Hip Joint with Ceramic on Polyethylene Synthetic Substitute, Open Approach (ICD-10-PCS; principal; 2018-06-12 08:15)
DX: M16.11 Unilateral primary osteoarthritis, right hip (principal); E03.9 Hypothyroidism, unspecified
CPT/HCPCS: 97110-GP; 97116-GP; 97161-GP; 97165-GO; 97530-GP; G8978-GP-CJ; G8979-GP-CI; G8980-GP-CI; G8987-GO-CI; G8988-GO-CJ; J0171; J0690; J1885; J2270; J2405; J2704; J2795; J3010; P9041

== ENCOUNTER → 2018-07-27 | Outpatient (CLI) | payer OTHER | LOC: BMCIMAGING 09:07 | PROVIDERS: ATTEND Orthopaedic Surgery | DX: Z47.1 Aftercare following joint replacement surgery (principal); Z96.641 Presence of right artificial hip joint ==

== ENCOUNTER → 2018-09-03 | Outpatient (CLI) | payer OTHER | LOC: BMCIMAGING 09:10 | PROVIDERS: ATTEND Orthopaedic Surgery | DX: Z47.1 Aftercare following joint replacement surgery (principal); Z96.641 Presence of right artificial hip joint ==

== ENCOUNTER → 2018-09-10 | Outpatient (CLI) | payer OTHER | LOC: FIMAGING 14:00 | PROVIDERS: ATTEND Internal Medicine | DX: Z12.31 Encounter for screening mammogram for malignant neoplasm of breast (principal); Z80.3 Family history of malignant neoplasm of breast ==

== ENCOUNTER → 2018-12-14 | Outpatient (CLI) | payer OTHER | LOC: BMCIMAGING 08:53 | PROVIDERS: ATTEND Orthopaedic Surgery | DX: Z47.1 Aftercare following joint replacement surgery (principal); Z96.641 Presence of right artificial hip joint ==

== ENCOUNTER → 2018-12-29 | Outpatient (CLI) | payer OTHER | LOC: BMCIMAGING 16:19 | PROVIDERS: ATTEND Orthopaedic Surgery | DX: Z96.641 Presence of right artificial hip joint (principal) ==

== ENCOUNTER → 2019-02-24 | Outpatient (CLI) | payer OTHER | LOC: FIMAGING 07:57 ==